=== PATIENT | female | born 1945 | race Hispanic/Latino ===

== ENCOUNTER 2022-12-24 02:18 | Emergency (ER) | payer MEDICAID, MEDICARE, OTHER ==
[2022-12-24] MEDS ORDERED: Acetaminophen 500 MG TAB ONE (03:59)
== END 2022-12-24 04:45 | disposition home or self-care (01) ==
LOC: EDBD 02:18 → MADERS 02:18
DX: S82.851A Displaced trimalleolar fracture of right lower leg, initial encounter for closed fracture (principal); I10 Essential (primary) hypertension; E11.9 Type 2 diabetes mellitus without complications; W01.0XXA Fall on same level from slipping, tripping and stumbling without subsequent striking against object, initial encounter; X50.1XXA Overexertion from prolonged static or awkward postures, initial encounter
CPT/HCPCS: 27840; 70450; 72125